=== PATIENT | male | born 1945 | race Caucasian/White ===

== ENCOUNTER 2019-11-26 10:08 | Outpatient (CLI) | payer MEDICARE, OTHER, SELFPAY ==
--- NOTE | ~2019-11-26 | MR_ITS ---
EXAMINATION: MR abdomen wo/w con INDICATION: Metastasis from colon cancer TECHNIQUE: Coronal SSFSE ARC, WATER:coronal LAVA-FLEX, Coronal 2D FIESTA FatSat, Axial SSFSE BH ARC, Axial 3D DualEcho BH, Axial SSFSE-IR, Axial DWI b=500, Axial 2D FIESTA FatSat, pre and dynamic postco ntrast Axial LAVA ARC, postcontrast Coronal In and Opposed phase LAVA FLEX COMPARISON: CT, 11/08/2019 CONTRAST: Multihance, 15 cc FINDINGS: Again seen are approximately 10 liver masses. The largest in the right hepatic lobe measure s 7.4 x 6.4 cm, previously 6.8 x 5.7 cm on the comparison CT. The largest in the left hepatic lobe me asures 7.3 x 5.2 cm, previously 6.5 x 6.2 cm on the comparison CT. Other masses appear similar in siz e since the comparison examination. There are no pathologically enlarged abdominal lymph nodes. The s pleen, pancreas, gallbladder, and adrenal glands are normal. The kidneys are unremarkable. There are no dilated loops of bowel. IMPRESSION: 1. Multiple liver masses, stable to slightly increased in size, consistent with metastatic disease. Reviewed, dictated and finalized at location A. [employer]
[2019-11-26 10:50] LABS: Blood Urea Nitrogen 16 mg/dL (8-26); Estimated Glomerular Filt Rate > 60
== END 2019-11-26 10:09 | disposition home or self-care (01) ==
LOC: ANHIMG 10:09
PROVIDERS: Visit Provider Internal Medicine Hematology & Oncology
DX: C18.9 Malignant neoplasm of colon, unspecified (principal); C79.9 Secondary malignant neoplasm of unspecified site; R16.0 Hepatomegaly, not elsewhere classified
CPT/HCPCS: 74183; A9577

== ENCOUNTER 2020-02-20 09:01 | Outpatient (CLI) | payer MEDICARE, OTHER, SELFPAY ==
--- NOTE | ~2020-02-20 | CT_ITS ---
EXAMINATION: CT chest abdomen pelvis w con DATE: 02/20/2020 09:39 INDICATION: Colon cancer with metastatic disease TECHNIQUE: Transaxial computed tomographic images of the chest, abdomen, and pelvis were obtained aft er the administration of 100 cc of Omnipaque 350 intravenous contrast. The dose-length product (DLP) was 427.67 mGy-cm. Automated exposure control and iterative reconstruction technique were employed. COMPARISON: 11/08/2019; MRI, 11/26/2019 FINDINGS: CHEST CT: A stable 6 mm nodule is present in the left upper lobe on image 44. A 4 mm subpleural nodule of the r ight lower lobe is not definitely identified on the prior examination (image 114). A right internal j ugular Port-A-Cath ends with its tip in the proximal right atrium. Calcified pulmonary nodules and ca lcified left hilar lymph nodes are consistent with old granulomatous disease. No pathologically enlar ged thoracic lymph nodes are identified. The heart size is normal. Thoracic spine persist and lorena adarsh fractures are unchanged. ABDOMEN/PELVIS CT: Multiple liver metastases persist with interval worsening. For instance an 8.8 cm mass of the left he patic lobe measured 7.3 cm on the most recent MRI. The spleen, pancreas, gallbladder, and adrenal gla nds are normal. There are new tiny metallic densities in the upper abdomen near the head of the pancr eas of unclear significance. The kidneys are unremarkable. A 2.7 x 1.4 cm left inguinal lymph node pr eviously measured 2.5 x 1.4 cm. A mildly enlarged left inguinal lymph node measures 12 mm in short ax is. There is no free intraperitoneal gas or evidence of bowel obstruction. The appendix is normal. Th ere is a small volume of pelvic ascites. IMPRESSION: 1. Multiple liver masses with interval worsening and enlarging left inguinal lymphadenopathy, consist ent with metastatic disease. 2. Stable left upper lobe nodule and small but new right lower lobe nodule, possibly metastatic disea se. Reviewed, dictated and finalized at location A. IMPRESSION: 1. Multiple liver masses with interval worsening and enlarging left inguinal ly mphadenopathy, consistent with metastatic disease. 2. Stable left upper lobe nodule and small but new right lower lobe nodule, pos sibly metastatic disease.
== END 2020-02-20 09:02 | disposition home or self-care (01) ==
LOC: ANHIMG 09:01
PROVIDERS: PCP Family Medicine; Visit Provider Internal Medicine Hematology & Oncology
DX: C79.9 Secondary malignant neoplasm of unspecified site (principal); C18.9 Malignant neoplasm of colon, unspecified; R16.0 Hepatomegaly, not elsewhere classified; R59.0 Localized enlarged lymph nodes; R91.1 Solitary pulmonary nodule
CPT/HCPCS: 71260; 74177; Q9967

== ENCOUNTER 2020-04-19 08:58 | Outpatient (CLI) | payer MEDICARE, OTHER, SELFPAY ==
--- NOTE | ~2020-04-19 | CT_ITS ---
EXAMINATION: CT chest w con DATE: 04/19/2020 10:36 INDICATION: Metastatic disease from colon cancer TECHNIQUE: Computed tomography (CT) of the chest was performed with 75 cc Omnipaque 350 intravenous c ontrast. The dose-length product was 143.88 mGy-cm. Automated exposure control and iterative reconstr uction technique were employed. COMPARISON: CT dated 02/20/2020 FINDINGS: stable 4 mm there is a 3 mm left upper lobe nodule, image 35. Increased size of 7 mm subpl eural nodule right lower lobe, image 92. 3 mm nodule left upper lobe, not definitely seen on prior ex amination. Millimeter nodule left upper lobe, image 21, not definitely seen on prior examination. 3-4 mm nodule left upper lobe, image 17, increased in size compared with prior study 5 mm nodule right u pper lobe, image 46, not definitely seen on prior examination. 5 mm left upper lobe nodule, image 60 not seen on prior examination. There are a few calcified granulomas. There is a 6 mm pleural-based no dule, superior segment left lower lobe, image 38, stable. No significant vascular abnormality. No lym phadenopathy. There are multiple enhancing masses of all segments of the liver, largest in the left hepatic lobe me asuring approximately 7.2 cm greatest dimension. These are compatible with metastatic disease. There is ascites in the upper abdomen. There are stranding and nodularity in the peritoneum and mesentery, suspicious for peritoneal carcinomatosis. IMPRESSION: 1. Increased size and number of pulmonary nodules with developing stranding and nodularity in the per itoneum and mesentery of the upper abdomen, likely metastatic disease. 2: Persistent hypervascular masses throughout the liver, consistent with metastatic disease. 3: Interval development of ascites, likely malignant. Reviewed, dictated and finalized at location A. IMPRESSION: 1. Increased size and number of pulmonary nodules with developing stranding and nodularity in the peritoneum and mesentery of the upper abdomen, likely metast atic disease. 2: Persistent hypervascular masses throughout the liver, consistent with metast atic disease. 3: Interval development of ascites, likely malignant.
--- NOTE | ~2020-04-19 | MR_ITS ---
EXAMINATION: MR abdomen wo/w con DATE: 04/19/2020 10:15 INDICATION: Metastatic colon cancer. TECHNIQUE: Magnetic resonance imaging (MRI) of the abdomen was performed without and with 15 mL Multi Lizbet intravenous contrast. Sequences included coronal T2-weighted FS FSE, coronal and axial FS FIEST A, axial T2-weighted FSE, coronal LAVA-flex, axial STIR FSE, axial DWI, axial dual-echo T1-weighted F SPGR, and axial LAVA. Postcontrast sequences included coronal LAVA-flex and a time course of axial LA VA. COMPARISON: Abdomen MRI 11/26/2019, CT 02/20/2020 FINDINGS: There are greater than 10 scattered masses in the liver. For example, a 7.1 cm mass in left hepatic l obe measured 8.6 cm on 02/20/2020. A 6.6 cm mass in right hepatic lobe measured 5.7 cm on 02/20/2020. A 4.5 cm mass in right hepatic lobe measured 3.6 cm. A 7.4 cm mass in right hepatic lobe previously measured 6.4 cm. The gallbladder, spleen, pancreas, ad renal glands, and kidneys are normal. There is a small volume of ascites. There are no pathologically enlarged lymph nodes. IMPRESSION: 1. Stable liver masses, consistent with metastatic disease. 2. Worsened small volume of ascites. Reviewed, dictated and finalized at location A.
== END 2020-04-19 08:59 | disposition home or self-care (01) ==
PROVIDERS: PCP Family Medicine; Visit Provider Internal Medicine Hematology & Oncology
DX: C79.9 Secondary malignant neoplasm of unspecified site (principal); C18.9 Malignant neoplasm of colon, unspecified; R91.8 Other nonspecific abnormal finding of lung field
CPT/HCPCS: 71260; 74183; A9577; Q9967

== ENCOUNTER 2020-06-15 09:23 | Emergency (ER) | payer MEDICARE, OTHER, SELFPAY ==
--- NOTE | ~2020-06-15 | US_ITS ---
EXAMINATION: US paracentesis abd w/image DATE: 06/15/2020 13:40 INDICATION: Ascites. TECHNIQUE: The procedure and its risks, benefits, and alternatives were discussed with the patient. P otential risks discussed included bleeding and infection. The skin was prepped and draped in sterile fashion. 1% lidocaine was used for local anesthesia. Under ultrasound guidance, a 5 Fr catheter with trochar was advanced into the ascites in the left lower quadrant. Fluid was aspirated. The catheter w as removed, and a dressing was applied. There were no immediate complications. FINDINGS: Ultrasound images demonstrate ascites and the catheter within the fluid. IMPRESSION: 1. Successful ultrasound-guided paracentesis yielding 2200 mL of clear, yellow fluid. Reviewed, dictated and finalized at location A.
--- NOTE | ~2020-06-15 | XR_ITS ---
EXAMINATION: XR chest 2V, XR abdomen obstructive series DATE: 06/15/2020 11:23 INDICATION: Shortness of breath. Abdominal distention. TECHNIQUE: 1. PA and lateral views of the chest were obtained. 2. Supine and erect AP views of the abdomen and pelvis were obtained. COMPARISON: Chest CT dated 04/19/2020 FINDINGS: Chest: Right internal jugular central venous port catheter with distal tip near the superior cavoatrial junc tion. Small calcified nodule in the left midlung zone along with calcified left hilar and mediastinal lymph nodes consistent with old granulomatous disease. There are a few additional subcentimeter nodu les at the left upper, left lower and right mid lung zones which are without evident calcification on prior CT and which appear larger in the current study raising concern for progression of pulmonary m etastatic disease. No pneumonia, pulmonary edema, pleural effusion or pneumothorax. The cardiomediast inal silhouette is normal. A few compression fractures in the mid thoracic and upper lumbar spine. Obstructive series: Normal amount of gas scattered throughout nondilated large and small bowel. No dilated loops of gas- filled bowel to suggest obstruction. No free intraperitoneal gas. Postoperative changes in the region of the head of the pancreas. Several phleboliths in the pelvis. IMPRESSION: 1. A few enlarging ulnar nodules concerning for progression of pulmonary metastatic disease. 2. Nonobstructive bowel gas pattern. Reviewed, dictated and finalized at location B. IMPRESSION: 1. A few enlarging ulnar nodules concerning for progression of pulmonary metast atic disease. 2. Nonobstructive bowel gas pattern.
[2020-06-15 09:40] VITALS: BP 143/100; PULSE 101; RESP 20; TEMP 36.8; O2SAT 94
[2020-06-15 10:24] LABS: Basophils Percent Auto 0.9 % (0.2-1.2); Eosinophils Absolute Auto 0.2 K/mm3 (0-0.3); Eosinophils Percent Auto 5.8 % (0-4.4); Hematocrit 27.5 % (42.0-52.0); Hemoglobin 8.8 g/dL (14.0-18.0); Immature Granulocyte Absolute 0.01 K/mm3 (0.00-0.031); Immature Granulocyte Percent A 0.3 % (0-0.5); Immature Platelet Fraction Pct 3.5 % (0.9-11.2); Lymphocytes Absolute Auto 0.46 K/mm3 (0.9-3.2); Lymphocytes Percent Auto 13.3 % (18.3-44.2); Mean Corpuscular Hemoglobin 31.1 pg (26-34); Mean Corpuscular Volume 97.2 fl (80-100); Mean Platelet Volume 11.5 fl (7.4-10.4); Monocytes Absolute Auto 0.6 K/mm3 (0.1-0.6); Monocytes Percent Auto 16.5 % (2.6-8.5); Neutrophils Absolute Auto 2.2 K/mm3 (1.3-6.7); Neutrophils Percent Auto 63.2 % (45.5-73.1); Platelet Count Result 107 k/mm3 (150-375); Red Blood Count 2.83 M/mm3 (4.6-6.20); Red Cell Distribution Width 17.6 % (11.5-14.5); White Blood Count 3.5 K/mm3 (4.5-10.0)
[2020-06-15 10:29] LABS: INR 1.3; Prothrombin Time 15.7 Seconds (11.1-14.7)
[2020-06-15 10:30] LABS: Partial Thromboplastin Time 49.7 SECONDS (22.3-36.8)
[2020-06-15 10:32] LABS: Alanine Aminotransferase 46 U/L (4-50); Albumin Level 2.9 g/dL (3.5-5.1); Alkaline Phosphatase 531 U/L (38-126); Anion Gap 3 mmol/L (8-16); Aspartate Amino Transferase 100 U/L (17-59); Bilirubin,Total 2.2 mg/dL (0.2-1.3); Blood Urea Nitrogen 16 mg/dL (9-20); Calcium 8.5 mg/dL (8.4-10.2); Carbon Dioxide 28 mmol/L (22-30); Chloride 106 mmol/L (98-107); Estimated CRCL calculation 73 ml/min; Estimated Glomerular Filt Rate > 60; Glucose 102 mg/dL (75-110); Potassium 3.1 mmol/L (3.4-5.0); Sodium 137 mmol/L (137-145)
[2020-06-15] MEDS: HEPARIN SOD FLUSH 500 UNITS/5 ML SYRINGE IV PUSH ×2 (11:25→14:33)
--- NOTE | 2020-06-15 12:21 | ED.GENADULT ---
HPI - General Adult General Chief complaint: Unspecified Stated complaint: ascites, needs paracentisis Time Seen by Provider: 06/15/20 10:00 History of Present Illness HPI narrative: Patient is a 74-year-old male who presents the ER with abdominal distention. He was referred here by Dr. Mehta to have a paracentesis performed on his abdomen. He has never had this procedure performed previously. Patient has known stage IV colon cancer with mets to liver and lungs. Reports abdominal distention worsening over the last 3 to 4 weeks. Also notes increased weight gain but cannot specify how much. He has lower extremity edema as well. Patient reports exertional dyspnea due to swelling but no dyspnea at rest. Denies runny nose/sore throat/productive cough. He has been afebrile. He is not on any blood thinners. Patient does endorse increased flatulence recently. Related Data Home Medications Medication Instructions Recorded Confirmed ondansetron 4 mg PO Q8H 07/26/19 06/04/20 oxycodone-acetaminophen 1 tablet PO Q4-6H PRN 07/26/19 06/04/20 iron, carbonyl 18 mg iron chewable 18 mg PO DAILY 11/30/19 06/04/20 tablet pantoprazole 20 mg tablet,delayed 20 mg PO QAM 11/30/19 06/04/20 release vitamin B12 0.5 mg-folic acid 1 mg 1 tablet PO DAILY 11/30/19 06/04/20 tablet zolpidem 5 mg tablet 5 mg PO ONCE 11/30/19 06/04/20 Allergies Allergy/AdvReac Type Severity Reaction Status Date / Time No Known Allergies Allergy Verified 06/15/20 09:47 Review of Systems Review of Systems: All systems reviewed & are unremarkable except as noted in HPI and below Constitutional: Constitutional: Denies chills, Denies fever(s) and Denies weakness ENT: Denies nasal congestion and Denies sore throat Cardiovascular: Cardiovascular: Denies chest pain and Denies radiating jaw, neck or arm pain Respiratory: Respiratory: Denies cough, Reports dyspnea and Denies wheezing Gastrointestinal: Gastrointestinal: Denies abdominal pain, Reports bloating, Denies diarrhea, Denies nausea and Denies vomiting PMF Social History Social History Smoking status: Never smoker Second hand tobacco smoke exposure: No Alcohol intake: never Spiritual care concerns: No Exam Narrative: Exam Narrative: GENERAL: Well-appearing, well-nourished, and in no acute distress. HEAD: Normocephalic, atraumatic. EYES: EOMI. CHEST: Clear to auscultation. No respiratory distress. HEART: Regular rate and rhythm. Normal peripheral pulses. ABDOMEN: Soft, nontender, distended, normal active bowel sounds. EXTREMITIES: Normal range of motion. 2+ edema. SKIN: Warm, dry, no rash. NEURO: Alert and oriented x3. PSYCH: Normal mood and affect. Course Course Emergency Course: Patient was admitted to the hospital service for paracentesis. He received his paracentesis and now he would like to leave. Discussed with patient that I would like to observe him to make sure he does not develop a drop in blood pressure from fluid accumulation or potential bleeding. Discussed that this is not a outpatient paracentesis center. Patient is willing to sign the paperwork to leave AGAINST MEDICAL ADVICE. Vital Signs Vital signs: Vital Signs Temperature 98.3 F 06/15/20 09:40 Pulse Rate 101 H 06/15/20 09:40 Respiratory Rate 06/15/20 09:40 Blood Pressure 143/100 H 06/15/20 09:40 Pulse Oximetry 94 06/15/20 09:40 Temperature 98.3 F 06/15/20 09:40 Pulse Rate 101 H 06/15/20 09:40 Respiratory Rate 06/15/20 09:40 Blood Pressure 143/100 H 06/15/20 09:40 Pulse Oximetry 94 06/15/20 09:40 Medical Decision Making Vital Signs Vital Signs: Vital Signs Temperature 98.3 F 06/15/20 09:40 Pulse Rate 101 H 06/15/20 09:40 Respiratory Rate 06/15/20 09:40 Blood Pressure 143/100 H 06/15/20 09:40 Pulse Oximetry 94 06/15/20 09:40 Temperature 98.3 F 06/15/20 09:40 Pulse Rate 101 H 09/
[2020-06-15 14:34] VITALS: BP 162/84; PULSE 82; RESP 18; O2SAT 98
[2020-06-15 16:28] LABS: Appearance Peritoneal Fluid Hazy (Clear); Color Peritoneal Fluid Yellow (Colorless); Nucleated Cells Peritoneal Flu 112 /uL (0-500); Source Peritoneal Fluid Peritoneal Fluid
[2020-06-15 16:29] LABS: Eosinophils Peritoneal Fluid 0 %; Lymphocytes Peritoneal Fluid 28 %; Macrophages Peritoneal Fluid 10 %; Mesothelial Cells Peritoneal Fluid 1 %; Monocytes Peritoneal Fluid 60 %; Neutrophils Peritoneal Fluid 1 % (0-25); RBC Peritoneal Fluid 179 /uL (0-100000)
[2020-06-18 01:02] LABS: Amylase Peritoneal Fluid 22 U/L
[2020-06-18 05:35] LABS: Glucose Peritoneal Fluid 102 mg/dL; LDH Peritoneal Fluid 44 U/L (<63); Total Protein Peritoneal Fluid <3.0 g/dL
[2020-06-20 12:36] LABS: Albumin Peritoneal Fluid 0.6 g/dL
== END 2020-06-15 14:35 | disposition left against medical advice (07) ==
LOC: ANHED 11:27 → ANH2MED 14:21
PROVIDERS: Emergency Provider Emergency Medicine; PCP Family Medicine
DX: R18.8 Other ascites (principal); C18.9 Malignant neoplasm of colon, unspecified; C78.7 Secondary malignant neoplasm of liver and intrahepatic bile duct; C78.02 Secondary malignant neoplasm of left lung; C78.01 Secondary malignant neoplasm of right lung
CPT/HCPCS: 36415; 49083; 71046; 74019; 80053; 82042; 82150; 82945; 83615; 84157; 85025; 85055; 85610; 85730; 87205; 88104; 88108; 88305; 89051; 96374; 96376; 99284

== ENCOUNTER 2020-06-27 12:09 | Outpatient (CLI) | payer MEDICARE, OTHER, SELFPAY ==
--- NOTE | ~2020-06-27 | CT_ITS ---
EXAMINATION:CT chest w con DATE: 06/27/2020 14:00 INDICATION: Metastatic colon cancer. TECHNIQUE: Computed tomography (CT) of the chest was performed with 75 mL Omnipaque 350 intravenous c ontrast. Automated exposure control and iterative reconstruction technique were employed. The dose-le ngth product (DLP) was 146.42 mGy-cm. COMPARISON: Chest CT 04/19/2020 FINDINGS: There are small pleural effusions, left worse than right. There is mild atelectasis bilater ally. Calcified left lung nodules and calcified left hilar lymph nodes are consistent with old granul omatous disease. There are greater than 15 scattered nodules in the lungs measuring up to 7 mm. For e xample, a 7 mm nodule in right upper lobe previously measured 3 mm. A 5 mm nodule in right middle lob e previously measured 3 mm. The heart size is normal. No pericardial effusion. There is a right inter nal jugular port with tip in right atrium. There is a large volume of ascites. There are multiple mas ses in the liver with interval worsening. For example, a 7.9 cm mass in right hepatic lobe previously measured 6.2 cm. There is periportal lymphadenopathy, consistent with metastatic disease. There is m ild thoracic spondylosis. There are multiple chronic compression fractures in the spine. There is a c hronic burst fracture of T8. IMPRESSION: 1. Worsened pulmonary nodules, liver masses, and periportal lymphadenopathy, consistent with metastat ic disease. 2. Worsened small pleural effusions. 3. Worsened large volume of ascites. Reviewed, dictated and finalized at location A. IMPRESSION: 1. Worsened pulmonary nodules, liver masses, and periportal lymphadenopathy, co nsistent with metastatic disease. 2. Worsened small pleural effusions. 3. Worsened large volume of ascites.
--- NOTE | ~2020-06-27 | MR_ITS ---
EXAMINATION: MR abdomen wo/w con DATE: 06/27/2020 13:50 INDICATION: Metastatic colon cancer with liver involvement. TECHNIQUE: Magnetic resonance imaging (MRI) of the abdomen was performed without and with 15 mL Multi Lizbet intravenous contrast. Sequences included coronal T2-weighted FS FSE, coronal and axial FS FIEST A, axial T2-weighted FSE, coronal LAVA-flex, axial STIR FSE, axial DWI, axial dual-echo T1-weighted F SPGR, and axial LAVA. Postcontrast sequences included coronal LAVA-flex and a time course of axial LA VA. COMPARISON: Abdomen MRI 04/19/2020 FINDINGS: There are small pleural effusions, left worse than right. There are greater than 10 masses in the cassandra er. For example, a 3.2 cm mass in right hepatic lobe previously measured 1.9 cm. A 7.9 cm mass in rig ht hepatic lobe previously measured 6.3 cm. The gallbladder, spleen, pancreas, adrenal glands, and ki dneys are normal. There is a large volume of ascites. There are no dilated loops of bowel. There are no pathologically enlarged lymph nodes. IMPRESSION: 1. Worsened liver masses, consistent with metastatic disease. 2. Large volume of ascites. Reviewed, dictated and finalized at location A.
== END 2020-06-27 12:10 | disposition home or self-care (01) ==
LOC: ANHIMG 12:21
PROVIDERS: PCP Family Medicine; Visit Provider Internal Medicine Hematology & Oncology
DX: C79.9 Secondary malignant neoplasm of unspecified site (principal); J90 Pleural effusion, not elsewhere classified; R18.8 Other ascites; R91.8 Other nonspecific abnormal finding of lung field
CPT/HCPCS: 71260; 74183; A9577; Q9967

== ENCOUNTER 2020-07-23 10:42 | Outpatient (RCR) | payer MEDICARE, OTHER, SELFPAY ==
--- NOTE | ~2020-07-23 | US_ITS ---
EXAMINATION: US paracentesis abd w/image DATE: 07/04/2020 14:19 INDICATION: Ascites. TECHNIQUE: The procedure and its risks, benefits, and alternatives were discussed with the patient. P otential risks discussed included bleeding and infection. The skin was prepped and draped in sterile fashion. 1% lidocaine was used for local anesthesia. Under ultrasound guidance, a 5 Fr catheter with trochar was advanced into the ascites in the left lower quadrant. Fluid was aspirated. The catheter w as removed, and a dressing was applied. There were no immediate complications. FINDINGS: Ultrasound images demonstrate ascites and the catheter within the fluid. IMPRESSION: 1. Successful ultrasound-guided paracentesis yielding 3500 mL of clear, yellow fluid. Reviewed, dictated and finalized at location A.
--- NOTE | ~2020-07-23 | US_ITS ---
EXAMINATION: US paracentesis abd w/image DATE: 07/23/2020 12:33 INDICATION: Ascites. TECHNIQUE: The procedure and its risks, benefits, and alternatives were discussed with the patient. P otential risks discussed included bleeding and infection. The skin was prepped and draped in sterile fashion. 1% lidocaine was used for local anesthesia. Under ultrasound guidance, a 5 Fr catheter with trochar was advanced into the ascites in the left lower quadrant. Fluid was aspirated. The catheter w as removed, and a dressing was applied. There were no immediate complications. FINDINGS: Ultrasound images demonstrate ascites and the catheter within the fluid. IMPRESSION: 1. Successful ultrasound-guided paracentesis yielding 4350 mL of clear, yellow fluid. Reviewed, dictated and finalized at location A.
== END 2020-10-02 23:59 | disposition home or self-care (01) ==
LOC: ANHIMG 10:42
PROVIDERS: PCP Family Medicine; Visit Provider Internal Medicine Hematology & Oncology
DX: C18.9 Malignant neoplasm of colon, unspecified (principal); C79.9 Secondary malignant neoplasm of unspecified site
CPT/HCPCS: 49083